=== PATIENT | male | born 1985 | race Caucasian/White ===

== ENCOUNTER 2018-09-06 09:54 | Day surgery (SDC) | payer OTHER ==
--- NOTE | 2018-09-06 09:43 | ANESTHESIA ---
Pre-Anesthesia VS, & Labs - Diagnosis L shoulder AC Joint arthritis, labral tear, bursitis - Procedure L shoulder scope, labral repair, SAD, DCE, RCR Vital Signs: Last Vital Signs Temp 36.4 C L 09/06/18 10:06 Pulse 82 09/06/18 10:06 Resp 16 09/06/18 10:06 BP 118/88 H 09/06/18 10:06 Pulse Ox 97 09/06/18 10:06 Height 5 ft 10 in Weight (kg) 113.4 kg - NPO >8 hours Home Medications and Allergies Home Medications: Ambulatory Orders No Known Home Medications 09/05/18 No Known Home Medications 09/05/18 Allergies/Adverse Reactions: Allergies Allergy/AdvReac Type Severity Reaction Status Date / Time amoxicillin Allergy Rash Verified 09/05/18 14:06 Anes History & Medical History - Medical History Cardiovascular: reports: None Pulmonary: reports: None Gastrointestinal: reports: None Urinary: reports: None Musculoskeletal: reports: None Endocrine/Autoimmune: reports: None Skin: reports: None Exam General: Alert, Oriented x3, Cooperative Dental: WNL Mouth Openin Fingerbreadth Neck Mobility: Normal Mallampati classification: II Thyromental Distance: greater than 6 cm Respiratory: Lungs clear Cardiovascular: Regular rate Neurological: Normal speech Mental/Cognitive Status: Alert/Oriented X3, Normal for patient Cognitive Status: Within normal limits Plan Anesthesia Type: General, Supraclavicular Block Regional Block: Per Surgeon's request for Post Op pain control Consent for Procedure(s) Verified and Reviewed: Yes Code Status: Attempt Resuscitation ASA classification: 2-Mild systemic disease Is this case an emergency?: No
[~2018-09-06 09:54] MED LIST: ROPIVACAINE 0.5% PF 20 ML AMPULE ONE
[2018-09-06] MEDS ORDERED: LACTATED RINGERS 1,000 ML IV ONE (10:05)
[2018-09-06] MEDS ORDERED: cefTRIAXone 2 GM VIAL ONE (10:11)
[2018-09-06] MEDS ORDERED: BUPIVACAINE 0.25% PF 10 ML VIAL ONE ×2 (12:15→12:18)
[2018-09-06] MEDS ORDERED: EPINEPHrine 1 MG/ML AMP ONE (12:15)
[2018-09-06] MEDS ORDERED: EPINEPHrine 1 MG/ML AMP IVP ONE (13:07)
[2018-09-06] MEDS ORDERED: BUPIVACAINE 0.25% PF 10 ML VIAL SUBQ ONE (13:08)
[2018-09-06] MEDS ORDERED: ONDANSETRON 4 MG/2 ML VIAL IVP PRN (17:32)
[2018-09-06] MEDS ORDERED: oxyCODONE 5 MG TABLET PO PRN (17:32)
--- NOTE | 2018-09-06 17:36 | OPERATIVE REPORT ---
Operative Report - General Procedure Date: 09/06/18 Planned Procedure: Left shoulder arthroscopy, labral repair, SAD, DCE, OSPBT Pre-Op Diagnosis: Left shoulder posterior labral tear, SLAP tear, AC joint arthritis, rotator Procedure Performed: Left shoulder arthroscopy, posterior labral repair, subacromial decompression, open subpectoral biceps tenodesis, open distal clavicle excision. Post Op Diagnosis: Left shoulder posterior labral tear, SLAP tear, AC joint arthritis, bursiti - Procedure Note Primary Surgeon: DARLING KULKARNI Secondary Surgeon: TIERA STAHL Anesthesia Technique: General ET tube, Regional block Estimated Blood Loss (mL): 75 - Other Other Information/Narrative: DETAILED PROCEDURE: Labral repair from 6 o'clock to 9:30, subacromial decompression, open subpectoral biceps tenodesis, distal clavicle excision IMPLANTS: Arthrex knotless suture tack x3 Arthrex fiber tack x1 POSTOPERATIVE PLAN: 0-2 weeks-Sling at all times. Pendulum exercises 5 times per day. 2-6 weeks-Passive range of motion with the following limits: FF to 90, abduction to 90 6-12 weeks-Active range of motion in all planes without limitation. Isometric rotator cuff strengthening is allowed 12-16 weeks-Gradually increase strengthening 16 weeks and beyond-Introduce dynamic activities EXAMINATION UNDER ANESTHESIA: ROM: Forward flexion 170 degrees abduction 170 degrees abduction external rotation 80 degrees abduction internal rotation 80 degrees Anterior load and shift: 1+ Posterior load and shift: 1+ ARTHROSCOPIC FINDINGS: Rotator interval: Degenerative fraying Biceps tendon & SLAP: Fraying at the tobias, minimal injection of the tendon, type II SLAP tear Subscapularis: Fraying of the superior border, otherwise intact Rotator Cuff: Normal-appearing HAGL: No Labrum: Posterior inferior labral tear, superior labral tear anterior to posterior Glenoid Cartilage: Grade I chondromalacia with some focal areas of increased wear, peripheral G LAD lesion near labral tear Humeral Head Cartilage: Normal-appearing with mild wear INDICATION FOR SURGERY: This is a 33-year-old [id number] male who sustained an injury to his left shoulder back in 2010, he underwent physical therapy back then which made the pain tolerable and then this past January he injured himself while weightlifting with a sharp increase in pain which failed to improve. Nonoperative managment failed to resolve symptoms. The risks, benefits, and alternatives were discussed. Risks included pain, bleeding, infection, damage to nearby structures, lack of symptom relief, implant complications, stiffness, need for further surgeries, DVT, PE, stroke, and even . He signed a written consent form. PROCEDURE IN DETAIL: The patient was met in the preoperative holding on the day of the procedure. Operative extremity was signed. Consent was verified. He desired to proceed. Regional anesthesia was obtained in the preoperative area. They were brought to the operating room and surrendered to anesthesia. Once general anesthesia was obtained they were placed in the lateral decubitus position with the operative side up. An axillary roll was placed and all bony prominences were well-padded. They were then prepped and draped in the standard sterile fashion. A surgical timeout was held to confirm the patient procedure, identity, procedure, laterality, allergies, images, and antibiotics. All were in agreement we proceeded. Balanced suspension was applied and a standard diagnostic arthroscopy was performed utilizing posterior and anterior superior portal sites. The anterior superior portal site was created under direct visualization. The findings of the diagnostic arthroscopy can be found above. A mid glenoid portal was then created under direct visualization bordering the subscapularis tendon. I then used a combination of high and low angled elevators to develop the labral tear and release it from off the glenoid neck. I then used to the pineapple rasp to finalize my release and abraded the bone to a bleeding bed. A sucker shaver was placed in the interval to debride any loose tissue and further abrade the glenoid neck. Any loose cartilage was debrided at that time. I then established a percutaneous 7:00 portal utilizing the Arthrex system. I then sequentially placed an anchor at the 6:00 position. The suture was passed using an appropriate 25 degree suture lasso. The labrum was secured using knotless technique. Appropriate tension was confirmed with a probe and the excess suture was cut. Using the same technique additional anchors were placed at 7:30, 9:00 positions. Proper capsular tension was restored and a labral bumper was recreated. ARTHROSCOPIC SUBACROMIAL DECOMPRESSION: The instruments and cannula were then removed from the glenohumeral joint. The scope trocar was placed in the posterior portal and the acromion was felt. It was then inserted just under the acromion scraping along the bone until the CA ligament was felt. The scope trocar was then brought just lateral to the CA ligament and out the anterior i ncision. The cannula was then brought over the scope trocar arthroscope were inserted. The arthroscope was backed up until the shaver and arthroscope in the subacromial space. I then systemically debrided the bursa using a sucker shaver and radiofrequency ablation wand. Care was taken to keep the deltoid fascia intact. The rotator cuff was then evaluated, there was no full thickness tear. Final images were taken MINI OPEN BICEPS TENODESIS: A 5 cm incision was made near the axillary fold centered over the pectoralis major tendon. Electrocautery was used to obtain hemostasis. The fascia was opened with dissection scissors. Blunt digital dissection was used to identify the intertubercular groove just under the pectoralis major tendon. The long head of the biceps tendon was visualized within this interval. The short head of the biceps was retracted with my finger and the right angle was used to deliver the tendon of the long head of the biceps out of the wound. A sanders elevator was then used to debride all synovial tissue from the intertubercular groove. A fibertack was placed high within the groove. Both limbs of the fibertack were pulled on and it was well fixed. I then whipstitched the biceps tendon starting 2 cm proximal to the musculotendinous junction down to the musculotendinous junction and back up to the same 2 cm location with a single limb of the suture tack. The other suture was placed once through the tendon at the 2 cm location. I then cut all excess tendon off. The suture limb that was passed the single time was then pulled on and this reduced the tendon nicely into the groove. The elbow was fully straightened and there was no excess tension on the repair site. I then tied 7 reverse half hitches alternating to secure the tendon in its place. The wound was then irrigated copiously. OPEN DISTAL CLAVICLE EXCISION: A 5 cm incision was made in line with the clavicle, centered over the acromioclavicular joint. Electrocautery was used to obtain hemostasis. Full-thickness skin flaps were made at the level of the fascia/joint capsule. A full-thickness longitudinal incision was made to open the acromioclavicular joint. Electrocautery was used to dissect the joint capsule from the bony surfaces. 2 Homans were placed around the distal clavicle. Rongeur was used to debride the intra-articular disc. An 8 mm resection was measured and performed with a sagittal saw. Care was taken to ensure this cut was parallel to the joint surface. All sharp bony edges were rounded. A finger was placed with into the defect and the arm was adducted fully without any impingement in the joint. The joint was then irrigated copiously. A watertight capsular and fascial closure was performed with 0 Vicryl. Any open incisions were closed with 2-0 Vicryl in the dermis and a running 3-0 Monocryl in the skin. The portal sites were then closed with 3-0 Monocryl buried. Mastisol and Steri-Strips were applied. The distal clavicle and biceps tenodesis incisions were injected with a total of 30 mL's of quarter percent Marcaine plain. A sterile dressing and a sling was applied. He was awakened and transferred to the recovery room. marion
[2018-09-06] MEDS ORDERED: HYDROmorphone 0.5 MG/0.5 ML SYRINGE ONE (18:16)
[2018-09-06 20:52] VITALS: BP 127/79
== END 2018-09-06 20:25 | disposition home or self-care (01) ==
LOC: SDS 09:54 → OBS 18:38 → SDS 20:25
PROVIDERS: ATTEND Orthopaedic Surgery
PROC: 0RNK4ZZ Release Left Shoulder Joint, Percutaneous Endoscopic Approach (ICD-10-PCS; 2018-09-06)
PROC: 0PBB4ZZ Excision of Left Clavicle, Percutaneous Endoscopic Approach (ICD-10-PCS; 2018-09-06)
PROC: 0RQK4ZZ Repair Left Shoulder Joint, Percutaneous Endoscopic Approach (ICD-10-PCS; 2018-09-06)
PROC: 0LS24ZZ Reposition Left Shoulder Tendon, Percutaneous Endoscopic Approach (ICD-10-PCS; principal; 2018-09-06 11:00)
DX: S43.492A Other sprain of left shoulder joint, initial encounter (principal); S43.432A Superior glenoid labrum lesion of left shoulder, initial encounter; M19.012 Primary osteoarthritis, left shoulder; M75.52 Bursitis of left shoulder
CPT/HCPCS: 29822; 29824; 29828; 29999; C1713; J1170; J7120

== ENCOUNTER 2018-12-18 10:04 | Outpatient (CLI) | payer OTHER | END 2018-12-18 10:05 | disposition home or self-care (01) | LOC: SC 10:04 | PROVIDERS: ATTEND Internal Medicine Pulmonary Disease | DX: R06.83 Snoring (principal); R06.81 Apnea, not elsewhere classified; G47.8 Other sleep disorders; R51 Headache; R41.89 Other symptoms and signs involving cognitive functions and awareness; G47.10 Hypersomnia, unspecified; Z87.891 Personal history of nicotine dependence | CPT/HCPCS: 99203; 99212 ==

== ENCOUNTER 2019-01-18 20:45 | Outpatient (CLI) | payer OTHER | END 2019-01-18 20:46 | disposition home or self-care (01) | LOC: SC 20:45 | PROVIDERS: ATTEND Internal Medicine Pulmonary Disease | DX: G47.33 Obstructive sleep apnea (adult) (pediatric) (principal); G47.61 Periodic limb movement disorder | CPT/HCPCS: 95810 ==

== ENCOUNTER 2019-02-07 11:15 | Outpatient (CLI) | payer OTHER | END 2019-02-07 11:16 | disposition home or self-care (01) | LOC: SC 11:15 | PROVIDERS: ATTEND Nurse Practitioner Family | DX: G47.33 Obstructive sleep apnea (adult) (pediatric) (principal); G47.61 Periodic limb movement disorder | CPT/HCPCS: 99212; 99214 ==

== ENCOUNTER 2019-04-23 14:47 | Outpatient (CLI) | payer OTHER ==
[2019-04-23 15:37] VITALS: BP 118/68
--- NOTE | 2019-04-23 15:37 | SLEEP CARE CONSULTATION ---
Information from patient questionnaire entered by Cherelle Lagunas. I have reviewed and concur with the information entered by Cherelle Lagunas. This document represents the service I personally performed and the decisions made by me, Yvonne Beauchamp, RN, MSN, DATA ASSISTANT. History of Present Illness Previous diagnosis: Mild, Obstructive Sleep Apnea-Hypopnea Syndrome AHI: 5.6 Reason for CPAP/BiPAP follow up: first compliance Equipment type: CPAP Equipment obtained from: [employer] Mask style: Nasal (Dream) Mask brand: Respironics Backup mask available: No (when this mask gets replaced, keep as a spare) Last cushion change: not since set up Prior sleep studies: Yes Year and Where: 2018 [facility] CPAP Compliance Data - Data Reviewed with Patient Average duration of nightly device use: 4h 49m Compliance rate %: 66.7 Current pressure setting (cmH2O): 6-15 Humidity settin Heated hose settin Average residual AHI: 6.6 Central apnea: 0.4 Obstructive apnea: 1.1 Hypopnea: 5.1 Subjective Missed days of use due to: reports: travel, other (forgot to take to overnight work. ) Patient concerns: reports: mask leak noise (initially only until mask adjusted), other. denies: aerophagia, mask discomfort, air blowing in eyes, condensation in mask/hose, nasal congestion, dry mouth, nose, throat, epistaxis Observed to snore while using device: No Current pressure setting perceived as: too low (waking with air hunger and pulling mask off his face intermittently) On therapy, patient: reports: sleeping better, awakening more refreshed, being more awake and alert during the day, more rested overall. denies: drowsiness while driving Initial [place] Sleepiness Scale score: 19 Current [place] Sleepiness Scale score: 14 Allergies and Home Medications Known drug allergies: Yes Allergy and home medication list: Medication Name (generic/name brand) Strength & Dosage Naproxen 500mg tab one twice daily as needed Allergy List Amoxicillin Review of Systems Review of systems same as previous: No (Recently diagnosed with ADHD) Physical Exam Blood Pressure: 118/68 Cuff size: long Heart Rate: 77 O2 Saturation: 98 Height: 5 ft 11.5 in Weight: 268 lb 9.6 oz Body Mass Index: 36.9 BMI Classification: Obesity Class 2 Impression and Plan 1. Obstructive Sleep Apnea-Hypopnea Syndrome, mild, with good treatment compliance the first month and slightly elevated residual AHI. He is also experiencing air hunger and woke to pulling mask of face. Thus I will increase his CPAP pressure to [id number]. He current ramp is comfortable. He is to contact me if the pressure is uncomfortable or does not resolve air hunger. On CPAP therapy, the patient has better sleep quality and is more rested overall. He is waking much more refreshed but fatigue if inadequate sleep. He is also advised to change his mask regularly to maintain fit and comfort of mask. Patient's apnea severity and rationale for treatment to reduce apnea, improve sleep quality and reduce cardiovascular and cerebrovascular events was reviewed. I also reviewed the benefit of consistent device use of CPAP for anxiety. * Change CPAP pressure to 8-12 cmH2O * Notify me if snoring with mask or feeling that the pressure is too much or too little * Attempt to lose weight * Return for follow up in 1-2 months, or sooner if concerns arise * * Addendum: 04-26-19 Received call that the ramp was not working. I returned call and clarified. The ramp was inadequate but new pressure more comfortable. At first he was unable to adjust ramp higher and called here. Since then he has adjusted ramp to 7cmH20 and reduced time to 5 minutes and is now comfortable. Patient advised to call if further concerns. I spent 100% of this 33 minute visit face to face with the patient with greater than 50% of this was spent time counseling the patient and coordination of care.
== END 2019-04-23 14:48 | disposition home or self-care (01) ==
LOC: SC 14:47
PROVIDERS: ATTEND Nurse Practitioner Family
DX: G47.33 Obstructive sleep apnea (adult) (pediatric) (principal); E66.9 Obesity, unspecified; Z68.36 Body mass index [BMI] 36.0-36.9, adult
CPT/HCPCS: 99212; 99214

== ENCOUNTER 2019-06-11 14:42 | Outpatient (CLI) | payer OTHER ==
[2019-06-11 15:47] VITALS: BP 118/76
--- NOTE | 2019-06-11 15:48 | SLEEP CARE CONSULTATION ---
Information from patient questionnaire entered by Cherelle Lagunas. I have reviewed and concur with the information entered by Cherelle Lagunas. This document represents the service I personally performed and the decisions made by me, Yvonne Beauchamp, RN, MSN, MANAGER OF PRODUCT. History of Present Illness Previous diagnosis: Mild, Obstructive Sleep Apnea-Hypopnea Syndrome AHI: 5.6 Reason for follow up: other (6 week ) Equipment type: CPAP Equipment obtained from: [employer] Mask style: Nasal (Dreamwear) Mask brand: Respironics Backup mask available: No (keep current mask when replaced for spare ) Last cushion change: 2 weeks Prior sleep studies: Yes HPI additional information: The CPAP pressure was adjusted for elevated residual and more comfortable. The ramp was also increased and much more comfortable and resolved air hunger. CPAP Compliance Data - Data Reviewed with Patient Average duration of nightly device use: 5h 55m Compliance rate %: 83.3 Current pressure setting (cmH2O): 8-12 Humidity settin Heated hose settin Average residual AHI: 3.7 Average large leak: 16s Subjective Missed days of use due to: reports: other (short nights due to initiation of adderall but now sleeping well. ) Patient concerns: reports: mask discomfort (mild from new mustache - thinking of shaving off ), air blowing in eyes (most nights at initiation), nasal congestion, other (mask dislodging in sleep due to headgear slipping up on head ). denies: aerophagia, mask leak noise, condensation in mask/hose, dry mouth, nose, throat, epistaxis Observed to snore while using device: No Current pressure setting perceived as: comfortable On therapy, patient: reports: sleeping better, awakening more refreshed, being more awake and alert during the day, more rested overall. denies: drowsiness while driving (able to drive long distances now since CPAP use. ) Initial [place] Sleepiness Scale score: 19 Current [place] Sleepiness Scale score: 7 Allergies and Home Medications Known drug allergies: Yes (amoxicillin) Home medication list reviewed: Yes Allergy and home medication list: Medication Name (generic/name brand) Strength & Dosage Naproxen 500mg tab one twice daily as needed adderall XR 20mg Allergy List Amoxicillin Review of Systems Review of systems same as previous: No (diagnosed with ADHD) Physical Exam Blood Pressure: 118/76 Cuff size: long Heart Rate: 88 O2 Saturation: 98 Height: 5 ft 11.5 in Weight: 261 lb (no boots) Weight change since last visit: lost 5 pounds Body Mass Index: 35.9 BMI Classification: Obesity Class 2 Impression and Plan 1. Obstructive Sleep Apnea-Hypopnea Syndrome, mild , with good treatment compliance and good apnea control. The new autoCPAP pressure is much more comfortable and reduced residual AHI from 6.6 to 3.7. On CPAP therapy, the patient has better sleep quality and is more rested overall especially since pressure change. To reduce mask dislodging in sleep, I ordered a headgear adap tor. He has been adjusting the humidity to find the right comfort level as was having condensation and now has mild dryness at lower levels. I discussed how humidity increases moisture and heated hose will reduce condensation. So he can adjust both to comfort of warmth and moisture of air and will change with sleeping environment temperature changes. He woke to the pressure too high when it was set at [id number]. Thus I will adjust pressure to [id number] as current 90% pressure used that is comfortable is 9.2cmH20. Patient advised to contact me if uncomfortable. He was also praised for his weight loss. New auto CPAP range could accomodate for some more weight loss. Patient advised of symptoms to report for further pressure adjustment. Patient's apnea severity and rationale for treatment to reduce apnea, improve sleep quality and reduce cardiovascular and cerebrovascular events was reviewed. I also reviewed the benefit of consistent device use of CPAP for his ADHD. * Change CPAP pressure to 8-10 cmH2O * Adjust humidity and heated hose. * headgear adaptor * Notify me if snoring with mask or feeling that the pressure is too much or too little * Attempt to lose weight * Return for follow up in 6 months as out of town til February, or contact sooner if concerns arise I spent 100% of this 35 minute visit face to face with the patient with greater than 50% of this was spent time counseling the patient and coordination of care.
== END 2019-06-11 14:43 | disposition home or self-care (01) ==
LOC: SC 14:42
PROVIDERS: ATTEND Nurse Practitioner Family
DX: G47.33 Obstructive sleep apnea (adult) (pediatric) (principal); E66.9 Obesity, unspecified; Z68.35 Body mass index [BMI] 35.0-35.9, adult
CPT/HCPCS: 99212; 99214

== ENCOUNTER 2020-12-04 05:33 | Day surgery (SDC) | payer OTHER ==
[2020-12-04] MEDS ORDERED: IOPAMIDOL-300 100 ML VIAL ONE (07:14)
[2020-12-04 07:18] LABS: BASOPHILS # (AUTO) 0.1 10^3/uL (0.0-0.1); BASOPHILS % (AUTO) 0.4 %; EOSINOPHILS # (AUTO) 0.2 10^3/uL (0.0-0.7); EOSINOPHILS % (AUTO) 1.4 %; HGB - HEMOGLOBIN 16.3 g/dL (14.0-18.0); LYMPHOCYTES # (AUTO) 2.8 10^3/uL (1.5-3.5); LYMPHOCYTES % (AUTO) 19.2 %; MEAN CORPUSCULAR HEMOGLOBIN 29.6 pg (27.0-31.0); MEAN CORPUSCULAR VOLUME 87.3 fL (80.0-94.0); MEAN PLATELET VOLUME 10.5 fL (7.4-11.4); MONOCYTES # (AUTO) 1.4 10^3/uL (0.0-1.0); MONOCYTES % (AUTO) 9.7 %; NEUTROPHILS # (AUTO) 10.1 10^3/uL (1.5-6.6); NEUTROPHILS % (AUTO) 68.5 %; PLT - PLATELET COUNT 267 10^3/uL (130-450); RED CELL DISTRIBUTION WIDTH 12.4 % (12.0-15.0); WHITE BLOOD COUNT 14.7 x10^3/uL (4.8-10.8)
[2020-12-04 07:31] LABS: ALBUMIN 4.7 g/dL (3.2-5.5); ALBUMIN/GLOBULIN RATIO 1.5 (1.0-2.2); BILIRUBIN,TOTAL 0.8 mg/dL (0.2-1.0); CALCIUM 9.2 mg/dL (8.5-10.3); CREATININE 1.1 mg/dL (0.6-1.2); TOTAL PROTEIN 7.9 g/dL (6.7-8.2)
[2020-12-04] MEDS ORDERED: IOPAMIDOL-300 100 ML VIAL IVP ONE (08:11)
--- NOTE | 2020-12-04 08:40 | CT Report ---
PROCEDURE: PELVIS W INDICATIONS: rectal pain swelling ? abscess CONTRAST: IV CONTRAST: Isovue 300 ml: 100 PO CONTRAST: *NO PO CONTRAST TECHNIQUE: After the administration of nonionic contrast, 5 mm thick sections acquired from the iliac crests to the symphysis. 5 mm thick coronal and sagittal reformats were acquired. For radiation dose reductio n, the following was used: automated exposure control, adjustment of mA and/or kV according to patie nt size. COMPARISON: None FINDINGS: Image quality: Excellent. Peritoneum and bowel: Contrast enhanced bowel loops demonstrate normal wall thickness and caliber. No free fluid or air. Located at the anterior margin of the anal and approximately 1.3 cm in transve rse dimension, also measuring 1.7 cm craniocaudad and 1.6 cm AP.. This is best seen centered on serie s 3 image 49 axial imaging, series 5 image 43 coronal reformatting should imaging, and series 6 image 43 sagittal reconstruction imaging. Genitourinary: Bladder wall thickness is normal. Nodes and vessels: No iliac, pelvic, or inguinal adenopathy. Iliac vessels demonstrate normal size and enhancement. Bones: No suspicious bony lesions. Miscellaneous: No inguinal hernias. There is no sign of diverticulitis and a normal appendix is fou nd at the right lower quadrant. IMPRESSION: Small anterior perianal abscess, as discussed above, with reference images for review detailed above. This abscess measures 1.3 x 1.7 x 1.6 cm and is not associated with fistula or other abnormality mor e superiorly. Please note that MR scanning with contrast generally provides significantly higher gato omic detail in this area. Reviewed by: Donny Montelongo MD on 12/04/2020 8:39 AM PDT Approved by: Donny Montelongo MD on 12/04/2020 8:39 AM PDT Station ID: [id number]
--- NOTE | 2020-12-04 09:05 | ED Physician Documentation ---
History of Present Illness - Stated complaint Stated Complaint: RECTAL PAIN - Chief complaint Chief Complaint: General - History obtained from History obtained from: Patient - History of Present Illness Timing: How many days ago (3) - Additonal information Additional information: Previously well 35-year-old male has developed some pain in his rectum over the past 3 days. He states that he has had a normal bowel movement yesterday and he has had some watery bowel movement out today after taking some milk of magnesia. He has pain with defecation and he does not feel that he has any hemorrhoids he is not had any evidence of blood out but the rectum is very tender and feels swollen. He has not had a fever he has not had these symptoms previously. Review of Systems Constitutional: denies: Fever Nose: denies: Congestion Throat: denies: Sore throat Cardiac: denies: Chest pain / pressure Respiratory: denies: Cough GI: denies: Abdominal Pain, Nausea, Vomiting, Constipation, Diarrhea : denies: Dysuria, Frequency Skin: denies: Rash Musculoskeletal: denies: Neck pain, Back pain, Extremity pain, Joint pain PD PAST MEDICAL HISTORY - Past Medical History Past Medical History: Yes Cardiovascular: None Respiratory: None Endocrine/Autoimmune: None GI: None : None Psych: Anxiety, Panic attacks, ADD/ADHD, Claustrophobia Musculoskeletal: None Derm: None - Past Surgical History Past Surgical History: Yes Ortho: Other - Present Medications Home Medications: Ambulatory Orders Medication Instructions Recorded Confirmed Dextroamphetamine/Amphetamine 30 mg PO DAILY 12/04/20 12/04/20 [Adderall 30 mg Tablet] - Allergies Allergies/Adverse Reactions: Allergies Allergy/AdvReac Type Severity Reaction Status Date / Time amoxicillin Allergy Rash Verified 12/04/20 05:42 ciprofloxacin AdvReac Nausea Verified 12/04/20 10:12 - Social History Does the pt smoke?: No Smoking Status: Never smoker Does the pt drink ETOH?: Yes ETOH Use: Wine, Beer, Liquor Does the pt have substance abuse?: No - Immunizations Immunizations are current?: Yes - POLST Patient has POLST: No PD ED PE NORMAL - Vitals Vital signs reviewed: Yes (Cardiac and hypertensive) - General General: Alert and oriented X 3, No acute distress, Well developed/nourished, Other (Apprehensive appearing 35-year-old male) - HEENT HEENT: Atraumatic, PERRL, EOMI - Neck Neck: Supple, no meningeal sign - Cardiac Cardiac: RRR, No murmur - Respiratory Respiratory: No respiratory distress, Clear bilaterally - Abdomen Abdomen: Normal bowel sounds, Soft, Non tender, Non distended, No organomegaly - Rectal Rectal: Other (The rectum itself is swollen and tender it is tender enough that I am unable to get a finger into the anal canal.) - Back Back: No CVA TTP, No spinal TTP - Derm Derm: Normal color, Warm and dry, No rash - Extremities Extremities: No deformity, No edema - Neuro Neuro: Alert and oriented X 3, 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, No motor deficit, No sensory deficit, Normal speech Eye Opening: Spontaneous Motor: Obeys Commands Verbal: Oriented GCS Score: 15 - Psych Psych: Normal mood, Normal affect Results - Vitals Vitals: Vital Signs - 24 hr 12/04/20 12/04/20 12/04/20 05:38 09:42 11:00 Temperature 36.2 C L Heart Rate 111 H 97 105 H Respiratory 16 19 19 Rate Blood Pressure 150/99 H 131/82 H 145/77 H O2 Saturation 98 98 99 12/04/20 13:00 Temperature Heart Rate 99 Respiratory 18 Rate Blood Pressure 117/100 H O2 Saturation 99 Oxygen O2 Source Room air - Labs Labs: Laboratory Tests 12/04/20 12/04/20 12/04/20 07:13 07:13 11:00 WBC 14.7 H RBC 5.50 Hgb 16.3 Hct 48.0 MCV 87.3 MCH 29.6 MCHC 34.0 RDW 12.4 Plt Count 267 MPV 10.5 Neut # (Auto) 10.1 H Lymph # (Auto) 2.8 [place] # (Auto) 1.4 H Eos # (Auto) 0.2 Baso # (Auto) 0.1 Absolute Nucleated RBC 0.00 Nucleated RBC % 0.0 Sodium 136 Potassium 4.0 Chloride 98 L Carbon Dioxide 29 Anion Gap 9.0 BUN 18 Creatinine 1.1 Estimated GFR (MDRD) 75 L Glucose 118 H Calcium 9.2 Total Bilirubin 0.8 AST 24 ALT 37 Alkaline Phosphatase 98 Total Protein 7.9 Albumin 4.7 Globulin 3.2 Albumin/Globulin Ratio 1.5 Lipase 27 Nasal Adenovirus (PCR) NOT DETECTED Nasal B. parapertussis DNA (PCR) NOT DETECTED Nasal Coronavir 229E PCR NOT DETECTED Nasal Coronavir HKU1 PCR NOT DETECTED Nasal Coronavir NL63 PCR NOT DETECTED Nasal Coronavir OC43 PCR NOT DETECTED Nasal Enterovir/Rhinovir PCR NOT DETECTED Nasal Influenza B PCR NOT DETECTED Nasal Influenza A PCR NOT DETECTED Nasal Parainfluen 1 PCR NOT DETECTED Nasal Parainfluen 2 PCR NOT DETECTED Nasal Parainfluen 3 PCR NOT DETECTED Nasal Parainfluen 4 PCR NOT DETECTED Nasal RSV (PCR) NOT DETECTED Nasal B.pertussis DNA PCR NOT DETECTED Nasal C.pneumoniae (PCR) NOT DETECTED Jason Human Metapneumo PCR NOT DETECTED Nasal M.pneumoniae (PCR) NOT DETECTED Nasal SARS-CoV-2 (PCR) NOT DETECTED - Rads (name of study) CT pel Radiology: Prelim report reviewed (: Small anterior perianal abscess, as discu ssed above, with reference images for review detailed above. The abscess measures 1.3 x 1.7 x 1.6 cm and is not associated with fistula or other abnormality more superiorly.), EMP read indepedently, See rad report PD MEDICAL DECISION MAKING - ED course Complexity details: reviewed results, re-evaluated patient, considered different ial, d/w patient ED course: 35-year-old male with 3 days of rectal pain has swelling in the rectum and a CT scan reveals a small abscess anteriorly. The patient is too tender to even be examined in the emergency department and Dr. Velez is consulted in the case comes to the emergency department evaluates the patient and agrees that he will need to take him to the operating room for treatment. Departure - Departure Disposition: 66 [facility] DC/Xfer Clinical Impression: Elizabeth-rectal abscess Condition: Stable
[2020-12-04] MEDS ORDERED: CIPROFLOXACIN 400 MG/200 ML 400 MG/200 ML BAG IV STA (09:31)
[2020-12-04] MEDS ORDERED: SODIUM CHLORIDE 0.9% 1,000 ML IV STA (09:31)
[2020-12-04] MEDS ORDERED: metroNIDAZOLE 500 MG/100 ML 500 MG/100 ML BAG IV ONE (09:32)
[2020-12-04 11:56] LABS: B. PARAPERTUSSIS- RESP PCR PAN NOT DETECTED; B. PERTUSSIS- RESP PCR PANEL NOT DETECTED; C. PNEUMONIAE- RESP PCR PANEL NOT DETECTED; CORONAVIRUS 229E-RESP PCR NOT DETECTED; CORONAVIRUS HKU1-RESP PCR NOT DETECTED; CORONAVIRUS NL63-RESP PCR NOT DETECTED; CORONAVIRUS OC43-RESP PCR NOT DETECTED; HUMAN METAPNEUMOVIRUS NOT DETECTED; INFLUENZA A- RESP PCR PANEL NOT DETECTED; INFLUENZA B - RESP PCR PANEL NOT DETECTED; M. PNEUMONIAE- RESP PCR PANEL NOT DETECTED; PARAINFLUENZA VIRUS 1 NOT DETECTED; PARAINFLUENZA VIRUS 2 NOT DETECTED; PARAINFLUENZA VIRUS 3 NOT DETECTED; PARAINFLUENZA VIRUS 4 NOT DETECTED; RHINOVIRUS/ENTEROVIRUS NOT DETECTED; RSV- RESP PCR PANEL NOT DETECTED; SARS-CoV-2 -RESP PCR PANEL NOT DETECTED
[2020-12-04] MEDS ORDERED: LIDOCAINE MPF 2%-EPI 1:200000 20 ML VIAL ONE (13:43)
[2020-12-04] MEDS ORDERED: BUPIVACAINE 0.5% PF 30 ML VIAL ONE (13:43)
[2020-12-04] MEDS ORDERED: KETAMINE 500 MG/10 ML VIAL ONE (15:25)
[2020-12-04] MEDS ORDERED: MIDAZOLAM 2 MG/2 ML VIAL ONE (15:25)
[2020-12-04] MEDS ORDERED: LIDOCAINE-MPF 2% 5 ML VIAL ONE (15:26)
[2020-12-04] MEDS ORDERED: PROPOFOL 200 MG/20 ML VIAL IVP ONE ×2 (15:26→16:13)
[2020-12-04] MEDS ORDERED: ONDANSETRON 4 MG/2 ML VIAL ONE (15:26)
--- NOTE | 2020-12-04 15:34 | ANESTHESIA ---
Pre-Anesthesia VS, & Labs - Diagnosis rectal abcess - Procedure EUA with I&D of rectal abcess Vital Signs: Temp Pulse Resp BP Pulse Ox 36.6 C 90 16 118/68 100 12/04/20 15:00 12/04/20 15:00 12/04/20 15:00 12/04/20 15:00 12/04/20 15:00 Height: 5 ft 10 in Weight (kg): 123.831 kg Body Mass Index: 39.2 BMI Classification: Obese - NPO >8 hours - Lab Results Current Lab Results: Laboratory Tests 12/04/20 07:13: Sodium 136, Potassium 4.0, Chloride 98 L, Carbon Dioxide 29, Anion Gap 9.0, BUN 18, Creatinine 1.1, Estimated GFR (MDRD) 75 L, Glucose 118 H, Calcium 9.2, Total Bilirubin 0.8, AST 24, ALT 37, Alkaline Phosphatase 98, Total Protein 7.9, Albumin 4.7, Globulin 3.2, Albumin/Globulin Ratio 1.5, Lipase 27 12/04/20 07:13: WBC 14.7 H, RBC 5.50, Hgb 16.3, Hct 48.0, MCV 87.3, MCH 29.6, MCHC 34.0, RDW 12.4, Plt Count 267, MPV 10.5, Neut # (Auto) 10.1 H, Lymph # (Auto) 2.8, [place] # (Auto) 1.4 H, Eos # (Auto) 0.2, Baso # (Auto) 0.1, Absolute Nucleated RBC 0.00, Nucleated RBC % 0.0 Fish Bones: 12/04/20 07:13 12/04/20 07:13 Home Medications and Allergies Home Medications: Ambulatory Orders Dextroamphetamine/Amphetamine [Adderall 30 mg Tablet] 30 mg PO DAILY 12/04/20 Active Medications Sodium Chloride (Normal Saline 0.9%) 1,000 mls @ 150 mls/hr IV .Q6H40M STA Stop: 12/04/20 16:10 Last Admin: 12/04/20 09:59 Dose: 150 mls/hr Documented by: Dextroamphetamine/Amphetamine [Adderall 30 mg Tablet] 30 mg PO DAILY 12/04/20 Allergies/Adverse Reactions: Allergies Allergy/AdvReac Type Severity Reaction Status Date / Time amoxicillin Allergy Rash Verified 12/04/20 05:42 ciprofloxacin AdvReac Nausea Verified 12/04/20 10:12 Anes History & Medical History - Anesthetic History Anesthesia Complications: reports: No previous complications Family history of Anesthesia Complications: Denies Family history of Malignant Hyperthermia: Denies - Medical History Cardiovascular: reports: None Pulmonary: reports: Sleep apnea, CPAP use Gastrointestinal: reports: None Urinary: reports: None Musculoskeletal: reports: None Endocrine/Autoimmune: reports: None Skin: reports: None Smoking Status: Never smoker Psychosocial: reports: Anxiety History of Cancer?: No - Surgical History Orthopedic: reports: Arthroscopic surgery (L shoulder), Other Exam General: Alert, Oriented x3, Cooperative Dental: WNL Mouth Openin Fingerbreadth Neck Mobility: Normal Mallampati classification: III Thyromental Distance: less than 4 cm Respiratory: Lungs clear Cardiovascular: Regular rate Abdomen: Normal bowel sounds Mental/Cognitive Status: Alert/Oriented X3, Normal for patient Plan Anesthesia Type: General Consent for Procedure(s) Verified and Reviewed: Yes Code Status: Attempt Resuscitation ASA classification: 3-Severe systemic disease Is this case an emergency?: No
--- NOTE | 2020-12-04 16:10 | SURGERY HX AND PHYSICAL(T) ---
Surgical History & Physical - Chief Complaint/HPI Chief Complaint: Perianal pain and levator spasm History of Present Illness: 35-year-old male presenting for acute onset perianal pain. Patient reports 1 to 2-day history of anterior perianal/perineal pain. Patient had suspected he was constipated and took laxative without any relief. No history of bloody diarrhea either now or historically. No prior colonoscopy. Denies colorectal cancer, inflammatory bowel disease as part of family history. Notable past surgical history to include none. Patient denies change in bowel function, denies bleeding per rectum, and also denies reflux associated symptoms. Patient does not use tobacco. Patient has a history of alcohol use but denies any associated abuse. Heterosexual male, , accompanied by . Patient is active ; no impediment to exercise tolerance. No history of heart attack or stroke. Patient takes no systemic anticoagulation. Endoscopic history includes none prior. - PMH/PSH/Social Hx Does the pt have a hx of MRSA?: No Cardiovascular: None Respiratory: Sleep apnea, CPAP use Skin: None Endocrine/Autoimmune: None Gastrointestinal: None Urinary: None Musculoskeletal: None Psychiatric: Anxiety, Panic attacks, ADD/ADHD, Claustrophobia Orthopedic: Arthroscopic surgery (L shoulder), Other Smoking Status: Never smoker Does the pt drink ETOH?: Yes Frequency: Occasional Does the pt have substance abuse?: No - Home Meds and Allergies Home Medications: Dextroamphetamine/Amphetamine [Adderall 30 mg Tablet] 30 mg PO DAILY 12/04/20 Allergies/Adverse Reactions: Allergies Allergy/AdvReac Type Severity Reaction Status Date / Time amoxicillin Allergy Rash Verified 12/04/20 05:42 ciprofloxacin AdvReac Nausea Verified 12/04/20 10:12 - Review of Systems Constitutional: Malaise Gastrointestinal: Other (Severe perianal pain) - Vital Signs Heart Rate: 90 Blood Pressure: 118/68 Temperature: 36.6 C Respiratory Rate: 16 O2 Saturation: 100 Weight (kg): 123.831 kg Height: 1.78 m - Physical Exam Comments/Other: General Appearance: positive: No acute distress Eyes Bilateral: positive: Normal inspection ENT: positive: ENT inspection nml Neck: positive: Nml inspection Respiratory: positive: Chest non-tender, No respiratory distress, Breath sounds nml. negative: Wheezes, Rales, Rhonchi Cardiovascular: positive: Regular rate & rhythm Abdomen: positive: No distention, Other. negative: Guarding, Rebound Extremities: positive: Non-tender, Full ROM, Nml appearance Neurologic/Psychiatric: positive: Oriented x3, CN's nml (2-12) Inspection: External Hemorrhoids - [None] Fissure in ano - [None] Erythema (perianal) - [anterior] Other - anterior perianal/perineal induration Palpation: Fluctuance -anterior Palpable cord - [None] Scar tissue - [None] Induration -anterior Digital Rectal Exam: Unable to perform secondary to significant discomfort Anoscopy: Unable to perform secondary to significant discomfort - Patient Review Patient Review: Problems were reviewed with the patient during this visit. Medications were reviewed with the patient during this visit. Allergies were reviewed this patient during this visit. Pertinent Tests Reviewed: All pertitent test for this patient were reviewed. - Assessment & Plan Assessment and Plan: 35-year-old male patient with no significant past medical or surgical history who presents with first episode of perianal abscess. No reported symptoms concerning for inflammatory bowel disease. CAT scan revealed small earlier as of fluctuance however this is deep with associated risk of sphincteric injury approached at the bedside without a ppropriate sedation. Patient was counseled of the risks related to anorectal intervention including sphincteric injury, bleeding, infectious process, amongst others. He was counseled there is no safe alternative given the risk of propagation and development of necrotizing infections in this clinical setting. Optimally he is to undergo exam under anesthesia, incision and drainage, possible seton placement should there be concern for fistula, possible rigid proctosigmoidoscopy, amongst others. He will spend extended recovery as part of ambulatory surgery with plan discharge tomorrow. Risk of urinary retention and pain control are significant and the patient would be best served with extended postoperative care. Please note that voice recognition software was used to transcribe this note and inadvertent errors might persist in spite of review and editing. I am obliged to you for your attention. I am thankful to you for allowing me to participate with you in this care of this patient.
[2020-12-04] MEDS ORDERED: SODIUM CHLORIDE 0.9% 10 ML VIAL IVP ONE (16:11)
[2020-12-04] MEDS ORDERED: fentaNYL 100 MCG/2 ML VIAL ONE ×2 (16:13→16:45)
[2020-12-04] MEDS ORDERED: BUPIVACAINE 0.5% PF 30 ML VIAL INFIL ONE ×2 (16:38→17:00)
[2020-12-04] MEDS ORDERED: LIDOCAINE 2%-EPI 1:100000 20 ML MDV SUBQ ONE ×2 (16:39→17:01)
[2020-12-04] MEDS ORDERED: oxyCODONE 5 MG TABLET PO PRN (17:17)
[2020-12-04] MEDS ORDERED: HYDROmorphone 0.5 MG/0.5 ML SYRINGE IVP PRN (17:17)
[2020-12-04] MEDS ORDERED: ONDANSETRON 4 MG/2 ML VIAL IVP PRN (17:17)
[2020-12-04] MEDS ORDERED: LACTATED RINGERS 1,000 ML IV ONE (17:20)
--- NOTE | 2020-12-04 17:23 | OPERATIVE REPORT ---
Operative Report - General Procedure Date: 12/04/20 Planned Procedure: 1. Examined anesthesia 2. Planned incision and drainage 3. Pudendal block 4. Other indicated procedures Pre-Op Diagnosis: Perianal abscess; perianal sepsis Procedure Performed: 1. Examined anesthesia 2. Planned incision and drainage 3. Pudendal block 4. Other indicated procedures Post Op Diagnosis: Same; [id number]; transphincteric [id number] - Procedure Note Primary Surgeon: Rosie Secondary Surgeon: Fahad Anesthesia Provider: Janiya Anesthesia Technique: General LMA, Local Pathology: None Estimated Blood Loss (mL): 20 Drain/Tube Type: Other ( 1. Silastic vessel loop seton placed through the transphincteric fistula doubled up x2. 2. Iodoform packing strip intermingled with Surgicel within the perianal abscess cavity. 3. Anal packing in the form of Gelfoam wrapped with Surgicel x2 constructed as a tampon) Indications: See EMR Findings: Left anterior lateral fluctuance with fistula in anal note transphincteric performed for decompression and seton placement. Complications: None - Other Other Information/Narrative: Anorectal exam: Inspection: External Hemorrhoids - [None] Fissure in ano - [None] Erythema (perianal) - [None] Other - left anterior lateral induration Palpation: Fluctuance - left anterior lateral induration and fluctuant Palpable cord - left anterior lateral palpable cord Scar tissue - [None] Induration - left anterior lateral Digital Rectal Exam: Rectal Tone - [good] Fluctuance - [None] Sphincter - [intact however sphincteric involvement was suspected in the setting of fistula] Masses - [None] Anoscopy: Hemorrhoids - Grade [II] Bleeding - [None] The patient was taken to the operating room, placed supine on operating table. Bilateral lower extremity serial compression devices were placed. After informed consent was confirmed and obtained, patient was induced for anesthesia as per above. The patient was placed in high lithotomy with candy-cane stirrups. At this time a time-out was called and the patient was performed for an intraoperative rigid/flexible endoscopy (see above for details). Digital rectal findings are listed above as well. Patient was thereafter prepped and draped in usual sterile fashion. A time-out was again called and agreed to by all in the room. Local was instilled for a perioperative block. Perioperative antibiotics were administered as listed above within an hour of incision if the patient had not already been dosed preoperatively as scheduled. Patient was placed for Sunshine catheter. Attending Physician Attestation Physical Presence Documentation I was physically present during the service to the patient and/or personally examined the patient, and I was directly involved in the management of the care provided to the patient. Procedure note: Preoperative diagnosis: Anal abscess Postoperative diagnosis: Anal abscess Procedure: Flexible proctosigmoidoscopy Surgeon: Mike Velez M.D. Indication: Evaluate for inflammatory changes consistent with inflammatory bowel disease. Consent was obtained from the patient. Verification of patient identification and procedure was performed. Timeout was called and agreed to by all in the room. Procedure detail: Inspection and digital rectal exam were performed, followed by insertion of the lubricated proctosigmoidoscope. The scope was advanced under direct vision with air insufflation. The lumen and mucosa was then examined carefully. The quality of bowel prep was good. The proctosigmoidoscope was then withdrawn. Findings: No significant inflammatory changes masses or other concerning features. Conclusions: The patient tolerated procedure well and was informed regarding the above listed findings. Circumferential exam and evaluation of the perianal skin revealed findings as per above consistent with perianal sepsis with associated fluctuance concerning for an abscess. A planned incision and drainage procedure thereafter was performed incision as medially as possible without injuring the sphincteric complex, which was carefully palpated and protected throughout. The unique characteristics of the cavity are listed above under findings. With the abscess decompressed, we thereafter proceeded to evaluate for the presence of an associated fistulous communication for which there was a clinical suspicion. Thus, the fistula probe was inserted into the cavity without any complication and passed through to the external opening. Please see above for specifics under findings. If the fistula probe was not easily passed, diluted hydrogen peroxide was utilized to identify the internal opening and if extravasation clearly appreciated, it was used to guide the fistula probe towards intubating the track. Classification is listed above. The probe was thereafter used to thread a silastic-vessel loop to act as a seton; this was doubled on itself and sized to fit. Once evaluated for any other tracts, if any, or extension if present (see above for both) the vessel loops were appropriately sized using silk ligatures. The external openings were assured for appropriately opening and sent for pathology as well if indicated. Circumferential exam was again performed without any evidence of bleeding or other pathology. 2 sheets of Surgicel were placed in the anal canal for hemostasis wrapped about Gelfoam. The patient tolerated the procedure well for which there was no complication. All counts correct for sponges, needles, and instruments. The patient was taken to the post anesthesia care unit in stable condition.
[2020-12-04] MEDS ORDERED: HYDROmorphone 0.5 MG/0.5 ML SYRINGE ONE (17:32)
[2020-12-04] MEDS ORDERED: KETOROLAC 15 MG/ML VIAL ONE (17:36)
--- NOTE | 2020-12-04 17:58 | ANESTHESIA POST OP EVALUATION ---
Anesthesia Post Eval - Post Anesthesia Eval Vitals: Last Vital Signs Temp 37.3 C 12/04/20 17:55 Pulse 90 12/04/20 17:55 Resp 16 12/04/20 17:55 BP 121/65 12/04/20 17:55 Pulse Ox 100 12/04/20 17:55 CV Function Including HR & BP: Stable Pain Control: Satisfactory Nausea & Vomiting: Negative Mental Status: Baseline Respiratory Status: Airway Patent Hydration Status: Satisfactory Anesthesia Complications: None
[2020-12-04] MEDS ORDERED: KETOROLAC 15 MG/ML VIAL IVP SCH (19:00)
[2020-12-04] MEDS: methocarbamoL 500 MG TABLET PO SCH (19:19)
[2020-12-04] MEDS: ACETAMINOPHEN 1,000 MG/100 ML 100 ML IV SCH (20:03)
[2020-12-04] MEDS: PREGABALIN 100 MG CAPSULE PO SCH (21:42)
[2020-12-04] MEDS ORDERED: ACETAMINOPHEN 1,000 MG/100 ML 100 ML IV SCH (22:00)
[2020-12-05] MEDS: KETOROLAC 15 MG/ML VIAL IVP SCH ×2 (00:15→06:11)
[2020-12-05] MEDS: methocarbamoL 500 MG TABLET PO SCH ×2 (00:16→06:11)
[2020-12-05] MEDS: ACETAMINOPHEN 1,000 MG/100 ML 100 ML IV SCH ×2 (02:38→08:33)
[2020-12-05 05:15] LABS: BASOPHILS % (AUTO) 0.3 %; EOSINOPHILS # (AUTO) 0.2 10^3/uL (0.0-0.7); HCT - HEMATOCRIT 42.6 % (42.0-52.0); HGB - HEMOGLOBIN 14.4 g/dL (14.0-18.0); MEAN CORPUSCULAR HEMOGLOBIN 29.9 pg (27.0-31.0); MEAN CORPUSCULAR HGB CONC 33.8 g/dL (32.0-36.0); MEAN CORPUSCULAR VOLUME 88.4 fL (80.0-94.0); MEAN PLATELET VOLUME 10.4 fL (7.4-11.4); MONOCYTES # (AUTO) 1.4 10^3/uL (0.0-1.0); MONOCYTES % (AUTO) 11.1 %; NEUTROPHILS # (AUTO) 7.4 10^3/uL (1.5-6.6); NEUTROPHILS % (AUTO) 61.1 %; PLT - PLATELET COUNT 242 10^3/uL (130-450); RED BLOOD COUNT 4.82 10^6/uL (4.70-6.10); RED CELL DISTRIBUTION WIDTH 12.6 % (12.0-15.0); WHITE BLOOD COUNT 12.2 x10^3/uL (4.8-10.8)
[2020-12-05 05:28] LABS: ALBUMIN 3.9 g/dL (3.2-5.5); ALBUMIN/GLOBULIN RATIO 1.4 (1.0-2.2); BILIRUBIN,TOTAL 1.2 mg/dL (0.2-1.0); CALCIUM 8.6 mg/dL (8.5-10.3); CREATININE 1.1 mg/dL (0.6-1.2); TOTAL PROTEIN 6.7 g/dL (6.7-8.2)
[2020-12-05 08:04] VITALS: BP 112/52
[2020-12-05] MEDS: PREGABALIN 100 MG CAPSULE PO SCH (08:33)
== END 2020-12-05 10:10 | disposition home or self-care (01) ==
LOC: ED 05:33 → SDS 12:59 → MS2 17:48 → SDS 12-05 10:10
PROVIDERS: ATTEND Surgery
PROC: 0DJD8ZZ Inspection of Lower Intestinal Tract, Via Natural or Artificial Opening Endoscopic (ICD-10-PCS; 2020-12-04)
PROC: 0D9Q70Z Drainage of Anus with Drainage Device, Via Natural or Artificial Opening (ICD-10-PCS; principal; 2020-12-04 15:30)
DX: K61.4 Intrasphincteric abscess (principal); K64.2 Third degree hemorrhoids; G47.30 Sleep apnea, unspecified; E66.9 Obesity, unspecified; Z68.39 Body mass index [BMI] 39.0-39.9, adult; Z20.822 Contact with and (suspected) exposure to COVID-19
CPT/HCPCS: 0202U; 36415; 45330; 46280; 72193; 80053; 83690; 85025; 96365; 99284; 99285; A9270; J0131; J1170; J7120; Q9967

== ENCOUNTER 2021-01-12 07:53 | Day surgery (SDC) | payer OTHER ==
[2021-01-12] MEDS ORDERED: LACTATED RINGERS 1,000 ML IV ONE ×2 (08:17→10:16)
--- NOTE | 2021-01-12 08:31 | ANESTHESIA ---
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 - Procedure COLONOSCOPY Vital Signs: Temp Pulse Resp BP Pulse Ox 36.3 C L 105 H 18 142/100 H 94 01/12/21 08:11 01/12/21 08:11 01/12/21 08:11 01/12/21 08:11 01/12/21 08:11 Height: 5 ft 11 in Weight (kg): 123 kg Body Mass Index: 37.8 BMI Classification: Obese - NPO >8 hours Home Medications and Allergies Dextroamphetamine/Amphetamine [Adderall 30 mg Tablet] 30 mg PO DAILY 12/04/20 Dextroamphetamine/Amphetamine [Adderall 10 mg Tablet] 10 mg PO QPM PRN 01/08/21 Allergies/Adverse Reactions: Allergies Allergy/AdvReac Type Severity Reaction Status Date / Time amoxicillin Allergy Rash Verified 12/04/20 05:42 ciprofloxacin AdvReac Nausea Verified 12/04/20 10:12 Anes History & Medical History - Anesthetic History Anesthesia Complications: reports: No previous complications, Emergence delirium (PT STATES HE WAKES UP "COMBATIVE") Family history of Anesthesia Complications: Denies Family history of Malignant Hyperthermia: Denies - Medical History Cardiovascular: reports: None Pulmonary: reports: Sleep apnea, CPAP use Gastrointestinal: reports: None Urinary: reports: None Musculoskeletal: reports: Osteoarthritis Endocrine/Autoimmune: reports: None Skin: reports: None Smoking Status: Never smoker - Surgical History Orthopedic: reports: Arthroscopic surgery, Other Exam General: Alert, Oriented x3, Cooperative Dental: WNL Mouth Openin Fingerbreadth Neck Mobility: Normal Mallampati classification: II Thyromental Distance: 4-6 cm Respiratory: Lungs clear Cardiovascular: Regular rate Plan Anesthesia Type: Total IV Consent for Procedure(s) Verified and Reviewed: Yes Code Status: Attempt Resuscitation ASA classification: 2-Mild systemic disease Is this case an emergency?: No
[2021-01-12] MEDS ORDERED: MIDAZOLAM 2 MG/2 ML VIAL ONE (09:28)
[2021-01-12] MEDS ORDERED: LIDOCAINE-MPF 2% 5 ML VIAL ONE (09:28)
[2021-01-12] MEDS ORDERED: PROPOFOL 1000 MG/100 ML 1,000 MG/100 ML BOTTLE IV ONE (09:28)
[2021-01-12 10:30] VITALS: BP 116/81
--- NOTE | 2021-01-12 12:17 | ANESTHESIA POST OP EVALUATION ---
Anesthesia Post Eval - Post Anesthesia Eval Vitals: Last Vital Signs Temp 36.4 C L 01/12/21 10:18 Pulse 95 01/12/21 10:29 Resp 22 01/12/21 10:29 BP 116/81 H 01/12/21 10:29 Pulse Ox 98 01/12/21 10:29 CV Function Including HR & BP: Stable Pain Control: Satisfactory Nausea & Vomiting: Negative Mental Status: Baseline Respiratory Status: Airway Patent Hydration Status: Satisfactory Anesthesia Complications: None
== END 2021-01-12 07:54 | disposition home or self-care (01) ==
LOC: SDS 07:53
PROVIDERS: ATTEND Surgery
PROC: 0DBE8ZX Excision of Large Intestine, Via Natural or Artificial Opening Endoscopic, Diagnostic (ICD-10-PCS; 2021-01-12)
PROC: 0DBB8ZX Excision of Ileum, Via Natural or Artificial Opening Endoscopic, Diagnostic (ICD-10-PCS; 2021-01-12)
PROC: 0DBH8ZX Excision of Cecum, Via Natural or Artificial Opening Endoscopic, Diagnostic (ICD-10-PCS; principal; 2021-01-12 08:45)
DX: K60.3 Anal fistula (principal); K52.89 Other specified noninfective gastroenteritis and colitis; K62.89 Other specified diseases of anus and rectum; K64.8 Other hemorrhoids; G47.30 Sleep apnea, unspecified; F41.0 Panic disorder [episodic paroxysmal anxiety]; E66.9 Obesity, unspecified; Z68.37 Body mass index [BMI] 37.0-37.9, adult; Z87.891 Personal history of nicotine dependence
CPT/HCPCS: 45380; 88305; J7120

== ENCOUNTER 2021-01-15 08:35 | Day surgery (SDC) | payer OTHER ==
[~2021-01-15 08:35] MED LIST changes: +CIPROFLOXACIN 400 MG/200 ML 400 MG/200 ML BAG IV ONE; -ROPIVACAINE 0.5% PF 20 ML AMPULE ONE; +metroNIDAZOLE 500 MG/100 ML 500 MG/100 ML BAG ONE
[2021-01-15] MEDS ORDERED: LACTATED RINGERS 1,000 ML IV ONE ×3 (08:40→14:19)
--- NOTE | 2021-01-15 09:40 | ANESTHESIA ---
Pre-Anesthesia VS, & Labs - Diagnosis anal fistula - Procedure EUA Endo Rectal advancement Flap Vital Signs: Temp Pulse Resp BP Pulse Ox 36.0 C L 88 16 150/102 H 96 01/15/21 08:43 01/15/21 08:43 01/15/21 08:43 01/15/21 08:43 01/15/21 08:43 Height: 5 ft 11 in Weight (kg): 125 kg Body Mass Index: 38.4 BMI Classification: Obese - NPO >8 hours Home Medications and Allergies Home Medications: Ambulatory Orders Dextroamphetamine/Amphetamine [Adderall 10 mg Tablet] 10 mg PO QPM PRN 01/08/21 Dextroamphetamine/Amphetamine [Adderall 30 mg Tablet] 30 mg PO DAILY 12/04/20 Dextroamphetamine/Amphetamine [Adderall 10 mg Tablet] 10 mg PO QPM PRN 01/08/21 Allergies/Adverse Reactions: Allergies Allergy/AdvReac Type Severity Reaction Status Date / Time amoxicillin Allergy Rash Verified 12/04/20 05:42 ciprofloxacin AdvReac Nausea Verified 12/04/20 10:12 Anes History & Medical History - Anesthetic History Anesthesia Complications: reports: Emergence delirium ("woke up violent") - Medical History Cardiovascular: reports: None Pulmonary: reports: Sleep apnea, CPAP use (uses every night) Gastrointestinal: reports: None Urinary: reports: None Neuro: reports: None Musculoskeletal: reports: Osteoarthritis Endocrine/Autoimmune: reports: None Blood Disorders: reports: None Skin: reports: None Smoking Status: Former smoker (quit 9 years ago) Psychosocial: reports: Depression, Anxiety, Alcohol (moderate alcohol consumption) History of Cancer?: No - Surgical History General: reports: Colonoscopy Orthopedic: reports: Arthroscopic surgery (left shoulder), Other Exam General: Alert, Oriented x3, Cooperative, No acute distress Dental: Other (front tooth chipped) Mouth Openin Fingerbreadth Neck Mobility: Normal Mallampati classification: III Thyromental Distance: 4-6 cm Respiratory: Lungs clear, Normal breath sounds, No respiratory distress, No accessory muscle use Cardiovascular: Regular rate, Normal S1, Normal S2, No murmurs Mental/Cognitive Status: Alert/Oriented X3, Normal for patient Plan Anesthesia Type: General Consent for Procedure(s) Verified and Reviewed: Yes Code Status: Attempt Resuscitation ASA classification: 2-Mild systemic disease Is this case an emergency?: No
[2021-01-15] MEDS ORDERED: MIDAZOLAM 2 MG/2 ML VIAL ONE (10:50)
[2021-01-15] MEDS ORDERED: PROPOFOL 200 MG/20 ML VIAL IVP ONE ×2 (10:51→12:39)
[2021-01-15] MEDS ORDERED: ROCURONIUM 50 MG/5 ML VIAL ONE (10:51)
[2021-01-15] MEDS ORDERED: fentaNYL 100 MCG/2 ML VIAL ONE ×2 (10:51→13:30)
[2021-01-15] MEDS ORDERED: LIDOCAINE-MPF 2% 5 ML VIAL ONE (10:51)
[2021-01-15] MEDS ORDERED: BUPIVACAINE 0.5% PF 30 ML VIAL ONE (11:37)
[2021-01-15] MEDS ORDERED: ONDANSETRON 4 MG/2 ML VIAL IVP PRN ×2 (12:07→14:41)
[2021-01-15] MEDS ORDERED: NALOXONE 0.4 MG/ML VIAL IVP PRN (12:07)
[2021-01-15] MEDS ORDERED: ATROPINE ABBOJECT 1 MG/10 ML SYRINGE IVP PRN (12:07)
[2021-01-15] MEDS ORDERED: MORPHINE 2 MG/ML CARPUJECT IVP PRN (12:07)
[2021-01-15] MEDS ORDERED: fentaNYL 100 MCG/2 ML VIAL IVP PRN (12:07)
[2021-01-15] MEDS ORDERED: HYDROmorphone 0.5 MG/0.5 ML SYRINGE IVP PRN ×2 (12:07→14:45)
[2021-01-15] MEDS ORDERED: DEXAMETHASONE 4 MG/ML VIAL ONE (12:33)
[2021-01-15] MEDS ORDERED: BUPIVACAINE 0.25% PF 30 ML VIAL SUBQ ONE (12:45)
[2021-01-15] MEDS ORDERED: HYDROmorphone 1 MG/ML CARPUJECT ONE (12:51)
[2021-01-15] MEDS ORDERED: GLYCOPYRROLATE 1 MG/5 ML VIAL ONE (12:55)
[2021-01-15] MEDS ORDERED: NEOSTIGMINE 1 MG/1 ML 10 ML MDV ONE (12:55)
[2021-01-15] MEDS ORDERED: LACTATED RINGERS 1,000 ML IV SCH (13:00)
[2021-01-15] MEDS ORDERED: ALBUTEROL 8 GM INHALER INH ONE (13:30)
[2021-01-15] MEDS ORDERED: KETOROLAC 30 MG/ML VIAL ONE (13:37)
[2021-01-15] MEDS ORDERED: oxyCODONE 5 MG TABLET PO PRN (14:41)
--- NOTE | 2021-01-15 14:42 | ANESTHESIA POST OP EVALUATION ---
Anesthesia Post Eval - Post Anesthesia Eval Vitals: Last Vital Signs Temp 36.3 C L 01/15/21 14:30 Pulse 98 01/15/21 14:30 Resp 14 01/15/21 14:30 BP 157/106 H 01/15/21 14:30 Pulse Ox 95 01/15/21 14:30 CV Function Including HR & BP: Stable Pain Control: Satisfactory Nausea & Vomiting: Negative Mental Status: Baseline Respiratory Status: Airway Patent Hydration Status: Satisfactory Anesthesia Complications: None
--- NOTE | 2021-01-15 14:48 | OPERATIVE REPORT ---
Operative Report - General Procedure Date: 01/15/21 Planned Procedure: 1. Exam under anesthesia 2. Possible fistulotomy 3. Possible endorectal advancement flap 4. 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 Examined anesthesia 2. Fistulotomy with partial fistulectomy 3. Gabi island advancement flap anoplasty 4. Pudendal block 5. Debridement Post Op Diagnosis: Same - Procedure Note Primary Surgeon: Rosie Secondary Surgeon: Fahad Anesthesia Provider: Hitesh Anesthesia Technique: General ET tube, Local Pathology: 1. External opening fistula in anal 2. Internal opening fistula in anal Estimated Blood Loss (mL): 75 Drain/Tube Type: Other (Anal packing) Indications: See EMR Findings: See below Complications: NONE - Other Other Information/Narrative: Intraoperative anorectal exam: Inspection: External Hemorrhoids - [None] Fissure in ano - [None] Erythema (perianal) - [None] Other -known fistula in anal left posterior lateral Palpation: Fluctuance - [None] Palpable cord -left posterior lateral known transphincteric fistula Scar tissue -yes Induration -no Digital Rectal Exam: Rectal Tone - aprpropriate Fluctuance - [None] Sphincter - [None] Masses - [None] Anoscopy: Hemorrhoids - Grade [II] Bleeding - [None] Distal proctitis - [None] Other - [None] Anastamosis - [None] OPERATIVE REPORT: The patient was taken to the operating room, placed supine on the operating table and after informed consent was confirmed, bilateral lower extremity serial compression devices were placed and thereafter, the patient was induced for general anesthesia, after which the patient was placed in high lithotomy with candy-cane stirrups with all pressure points offloaded and padded. Perioperative antibiotics dosed within an hour of incision. After this was completed, the patient was called for a timeout, which was agreed to by all in the room and an intraoperative endoscopy was performed. Please see the above for details. Please note the patient had already undergone endoscopic evaluation with random biopsies following his presentation with perianal sepsis. There was some mild colitis however nothing significant within the terminal ileum. Thus there was no need for interval optimization of medical management in anticipation of definitive repair for his transphincteric fistula. We will send him for gastrointestinal referral regardless. Because of the height of the internal opening this was not a candidate for endoanal/endorectal advancement flap and together with the indication for anal plasty gabi island advancement flap was the optimal choice. At this time, a Roni-Allred retractor was used to perform circumferential exam with findings as listed above. With the Seton in place, 0.5% Marcaine plus epinephrine was locally instilled for perioperative analgesia and block and at this time with both ends of the Seton clamped the tract was debrided with diluted hydrogen peroxide using an Angiocath. With this completed, the Seton was thereafter divided and 1 end was sutured to a Nu Gauze plain packing strip that had been presoaked in diluted hydrogen peroxide as well. This was thereafter tracked through the fistula tract and aggressively used to debride the entire fistula of its epithelial lining towards assuring adequate and complete closure. With the tract debrided and the internal opening still noted with the Nu Gauze in place, we performed a partial fistulectomy at the level of the internal opening as part of a planned gabi island advancement flap anoplasty outside- in towards coverage of the internal opening to address this transsphincteric [id number], which was not a candidate for traditional fistulotomy given the involvement of both internal and external sphincteric muscles. With the internal opening excised and sent for permanent pathology, we similarly did the same for the external opening, which was also sent for permanent pathology as well. Threading a fistula probe through the tract using the Nu Gauze, several interr upted sutures of 2-0 Vicryl in a [id number] fashion were used to obliterate the internal opening after the fistula probe was thereafter removed. This was again tested for obliteration by re-instilling diluted hydrogen peroxide through the tract with no extravasation noted at internal opening. With this completed and the internal opening debrided from associated tissue with an appropriate bed to accept the gabi flap anoplasty, we proceeded to perform the advancement flap towards addressing the internal opening. A gabi of skin was marked in the perianal skin approximately 3 cm poin t-to-point and this was incised sharply using a scalpel and deepened through the subcutaneous tissue with sharp dissection as well. Once this was completed, 2-0 Vicryl was used to secure the apex of the flap into the proximal apex of the anal canal at the level of the internal opening. This provided adequate coverage without any tension. Once this was completed, the 2 lateral apices were also secured using 2-0 Vicryl, again to appropriately advance the flap to cover the internal opening as well as the associated defect status post partial fistulectomy. Once this was completed, we proceeded to tie these stitches and thereafter further release the associated subcutaneous fat from the advancement flap to assure there was no tension on this tissue transfer while maintaining the blood supply, which was evident as flap was viable throughout the entirety of this operative intervention. With the island flap in place plainly viable without any tension noted on this tissue transfer, additional interrupteds of 2-0 Vicryl were used to close the facets along each of the proximal borders of the gabi. Once this was done with good approximation of tissue, we proceeded to close the distal facets just below the lateral apices with 2-0 Vicryl and then addressed radial donor site defect with 2-0 Vicryl to re-approximate the perianal skin. The wound at this time was hemostatic. Having completed this gabi island advancement flap anoplasty, we performed a circumferential exam, noting that flap was without any tension, was viable and was in place covering entirety of this partial fistulectomy site at the level of the internal opening. With this completed, hemostasis achieved and no other pathology noted, the external opening again had already been widened and was checked for hemostasis, which was also achieved. With this accomplished, we instilled the remainder of local as part of pudendal and local block circumferentially for lise and postoperative analgesia in the perianal skin and along the island flap donor site without any complication. Once this was achieved, final circumferential exam was performed with hemostasis confirmed. Packing was performed with Gelfoam wrapped with Surgicel in the manner of a tampon and tied with Vicryl. With all counts correct for both sponges, needles, and instruments, the patient was dressed with dry sterile gauze and mesh panties. The patient tolerated the procedure well for which there was no complication and was taken to the postanesthesia care unit in stable condition. Please note postoperative plan is as follows: POST ANORECTAL SURGICAL INSTRUCTIONS: PLAN: 1. Resume anticoagulation, if any, as per specific instructions. Call for any bleeding before resuming anticoagulation. 2. The patient to call for fevers, significant bleeding, severe pain or urinary retention. 3. The patient was advised to remove anal packing on the a.m. of postoperative day #1. 4. The patient to continue with warm tub soaks twice daily unless fistula plug is placed, in which case no submersive baths. 5. The patient to proceed with a high-fiber diet as recommended with mechanical fiber supplementation. 6. The patient to proceed with a bowel regimen including Colace, given narcotics for postoperative pain, and MiraLAX for salvage if fails to have bowel movement within 2 days of operative intervention. If no bowel movement within 3 days, patient to call service/office. 7. The patient to follow up with me in 10 days post procedure. 8. The patient to continue with antibiotics as instructed if prescribed. 9. No driving while taking narcotics, and avoid exertional activity in the immediate post-operative period. Please note I was present for the entirety of this operative intervention. Please note that all counts of sponges needles instruments correct the conclusion of this operative case. There were no complications. Please note that voice recognition software was used to transcribe this note and inadvertent errors might persist in spite of review and editing. I am obliged to you for your attention. I am thankful to you for allowing me to participate with you in this care of this patient.
[2021-01-15] MEDS ORDERED: TAMSULOSIN 0.4 MG CAPSULE PO ONE (17:00)
[2021-01-15] MEDS: methocarbamoL 500 MG TABLET PO SCH (17:52)
[2021-01-15] MEDS: KETOROLAC 15 MG/ML VIAL IVP SCH (17:53)
[2021-01-16] MEDS: methocarbamoL 500 MG TABLET PO SCH ×3 (00:28→11:26)
[2021-01-16] MEDS: KETOROLAC 15 MG/ML VIAL IVP SCH ×3 (00:29→11:26)
[2021-01-16 11:19] VITALS: BP 133/74
--- NOTE | 2021-01-16 12:22 | Discharge Plan ---
Discharge Plan Problem Reviewed?: Yes Disposition: Home, Self Care Condition: Good Prescriptions: oxyCODONE [Roxicodone] 5 mg PO Q4HR PRN #30 tablet PRN Reason: Pain methocarbamoL [Robaxin] 500 mg PO Q6HR PRN #50 tablet PRN Reason: Spasms metroNIDAZOLE [Flagyl] 250 mg PO Q8H #42 tablet Tamsulosin HCl [Flomax] 0.4 mg PO DAILY #30 cap Diet: Soft Activity Restrictions: Additional Comments Shower Restrictions: No Driving Restrictions: Yes (no driving while taking narcotis) Weight Bearing: Full Weight Plan of Treatment: POST ANORECTAL SURGICAL INSTRUCTIONS: PLAN: 1. Resume anticoagulation, if any, as per specific instructions. Call for any bleeding before resuming anticoagulation. 2. The patient to call for fevers, significant bleeding, severe pain or urinary retention. 3. The patient was advised to remove anal packing on the a.m. of postoperative day #1. 4. The patient to continue with warm tub soaks twice daily unless fistula plug is placed, in which case no submersive baths. 5. The patient to proceed with a high-fiber diet as recommended with mechanical fiber supplementation. 6. The patient to proceed with a bowel regimen including Colace, given narcotics for postoperative pain, and MiraLAX for salvage if fails to have bowel movement within 2 days of operative intervention. If no bowel movement within 3 days, patient to call service/office. 7. The patient to follow up with me in 10 days post procedure. 8. The patient to continue with antibiotics as instructed if prescribed. 9. Patient was advised that if instilled with Exparel (Liposomal Bupivicaine) no lidocaine for 96 hours, and arm band to be left in place as indicative of this. 10. No driving while taking narcotics, and avoid exertional activity in the immediate post-operative period. Impression/Plan 1. Oxycodone every 4-6 hours as needed for pain 2. Take Colace twice daily and MiraLAX daily as per above while taking narcotics and if no bowel function 3. Avoid nonsteroidals and continue with acetaminophen 650 mg every 6 hours not to exceed 4 g daily 4. Patient to also follow-up in surgery clinic for staple removal. 5. Patient to call or return to the hospital through ER for fevers, nausea, vomiting, abdominal pain or any other worrisome symptoms or concerns. 6. Patient not to return to any work capacity until seen in clinic. No Smoking: If you smoke, Please STOP! Call for help. Follow-up with: Mike Velez MD [Provider Admit Priv/Credential] - 1 Week
== END 2021-01-16 13:00 | disposition home or self-care (01) ==
LOC: SDS 08:35 → MS2 14:39 → SDS 01-16 13:00
PROVIDERS: ATTEND Surgery
PROC: 0JX Subcutaneous Tissue and Fascia, Transfer (ICD-10-PCS; 2021-01-15)
PROC: 0DBQ7ZZ Excision of Anus, Via Natural or Artificial Opening (ICD-10-PCS; principal; 2021-01-15 09:45)
DX: K60.3 Anal fistula (principal); G47.30 Sleep apnea, unspecified; E66.9 Obesity, unspecified; Z68.38 Body mass index [BMI] 38.0-38.9, adult; Z87.891 Personal history of nicotine dependence
CPT/HCPCS: 46288; A9270; J1170; J7120

== ENCOUNTER 2021-06-14 14:04 | Outpatient (CLI) | payer OTHER | END 2021-06-14 14:05 | disposition home or self-care (01) | LOC: DI 14:04 | DX: M47.892 Other spondylosis, cervical region (principal) ==

== ENCOUNTER 2021-06-14 14:20 | Outpatient (CLI) | payer OTHER ==
--- NOTE | 2021-06-14 16:59 | MRI Report ---
PROCEDURE: Knee RT W/O INDICATIONS: PAIN IN RIGHT KNEE TECHNIQUE: Noncontrast sagittal PD fast spin echo and T2 fast spin echo with fat saturation, sagittal 3-D gradie nt sequence with fat saturation; coronal T1 spin echo and PD fast spin echo with fat saturation, and axial PD fast spin echo with fat saturation through the knee. COMPARISON: None. FINDINGS: Image quality: Excellent. Menisci: The medial and lateral menisci demonstrate normal morphology and internal signal. The meni scal root ligaments appear intact. Cruciate ligaments: The anterior and posterior cruciate ligaments appear intact. Medial structures: Low-grade MCL sprain is seen. The posterior oblique ligament, semimembranosus tend on insertions, and oblique popliteal ligament, and meniscocapsular junction appear intact. Visualize d portions of the pes anserinus tendons appear normal. No abnormal bursal fluid. Lateral structures: Low-grade proximal LCL sprain is also seen. The long and short heads of the bicep s femoris tendon appear intact. The popliteus tendon appears normal; the popliteofibular ligament ap pears intact. The posterosuperior and anteroinferior popliteomeniscal fascicles appear intact. The arcuate and fabellofibular ligaments appear intact, around the lateral inferior geniculate artery. I liotibial band appears normal. Anterior structures: Distal quadriceps tendinosis at its superior patella insertion is seen. Patellar tendon is intact. Patellar alignment is normal. No femoral trochlear dysplasia or ventral trochlear prominence. No edema in the infrapatellar fat pad. Bones and cartilage: Marrow edema is seen involving upper portion of posterior patella without discre te fracture line. No other area of abnormal marrow signal. 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 Low to moderate grade chondromalacia involving apex and medial f acet of patella cartilage is also noted. joint space: There is small joint effusion. No Grajeda's cyst. Normal appearing synovial plicae are incidentally noted. IMPRESSION: 1. No evidence of focal meniscal tear. 2. Cruciate ligaments are intact. 3. Suggestion of bony contusion versus osteochondral injury involving upper portion of posterior german lla near apex with low to moderate grade chondromalacia patella involving apex and medial facet of pa tella cartilage. No fracture or dislocation. Low-grade chondromalacia also seen in medial femoral tib ial compartment. 4. Distal quadriceps tendinosis at its superior patella insertion. Low-grade proximal MCL and LCL spr ain. Reviewed by: Edinson Sanches MD on 06/14/2021 4:58 PM PST Approved by: Edinson Sanches MD on 06/14/2021 4:58 PM PST Station ID: [id number]
== END 2021-06-14 14:21 | disposition home or self-care (01) ==
LOC: DI 14:20
PROVIDERS: ATTEND Family Medicine
DX: R93.6 Abnormal findings on diagnostic imaging of limbs (principal); M67.863 Other specified disorders of tendon, right knee; S83.421A Sprain of lateral collateral ligament of right knee, initial encounter; S83.411A Sprain of medial collateral ligament of right knee, initial encounter

== ENCOUNTER 2022-09-26 13:59 | Outpatient (CLI) | payer OTHER ==
[2022-09-26 21:19] VITALS: BP 92/76
--- NOTE | 2022-09-26 21:19 | SLEEP CARE CONSULTATION ---
Information from patient questionnaire entered by Radha Wallace LPN. I have reviewed and concur with the information entered by Radha Wallace LPN. This document represents the service I personally performed and the decisions made by me, Yonatan Barrera MD, [facility] [place]. History of Present Illness Service Date and Time: 09/26/2022 1359 Reason for Visit: New patient Chief Complaint: reports: Unrefreshed sleep, Other (NEED MACHINE ADJUSTMENT) Date of Onset: UNKOWN Usual bedtime: MIDNIGHT Time it takes to fall asleep: A FEW MINS AFTER THE MACHINE HITS 9.5 Snores at night: Yes (WITHOUT MACHINE) Observed to quit breathing while asleep: Yes (SAME ABOVE) Sleeps alone due to snoring: No Number of times waking at night: UNKNOWN Reasons for waking at night: reports: Choking, Gasping for air Toss, Turn, or Twitch while sleeping: Yes Recalls having dreams: Yes (SOMETIMES) Usually gets out of bed at: 0730 Feels refreshed in the morning: Yes (SOMETIMES) Morning headache: Yes (SOMETIMES) Sleepy or fatigued during the day: Yes (SOMETIMES) Ever fallen asleep while driving: No (NOT SINCE STARTING THE MACHINE) Takes day naps: No Prior sleep studies: Yes (2019 HERE) Year and Where: 2018 [facility] Additional HPI information: I had the pleasure of seeing Mr. Julian today regarding mild obstructive sleep apnea-hypopnea. As you know, he is a 37-year-old gentleman who had an in- laboratory polysomnography here in 2019 showing mild obstructive sleep apnea- hypopnea with an AHI of 5.6 and silver oxygen saturation of 83%. The respiratory events occurred almost exclusively during REM sleep. He was prescribed an autoCPAP set at 8 12 cmH2O. He has been using the device sporadically. The compliance report shows usage in 43 out of the past 180 night. He says that the pressure feels too low. He wears a [employer]ics DreamWear nasal cushion mask. The residual AHI is 4.3. Average air leak is 7 L/minute. [email or web address] is his durable medical supplier. - Parasomnia Symptoms Ever been unable to move upon waking from sleep: Yes Walks in sleep: No Talks in sleep: No Ever felt weak in the knees when startled or emotional: No Bothered by creepy, crawly, restless sensations in legs: No Problems with memory or concentration: Yes CPAP Compliance Data - Data Reviewed with Patient Average duration of nightly device use: 4HRS 22MINS Compliance rate %: 23.9 Current pressure setting (cmH2O): 8-12 Average residual AHI: 4.3 Subjective Initial [place] Sleepiness Scale score: 19 Social History The patient's occupation is a [employer]. Patient is and lives in [place]. Have you smoked in the past 12 months: Yes Cigarettes per day (20/pack): 11 Quit date: 2011 Alcohol use: Yes Alcohol amount and frequency: OCCASIONAL Caffeine use: Yes Caffeine amount and frequency: DAILY Allergies and Home Medications Drug allergies reviewed: Yes Home medication list reviewed: Yes Allergy and home medication list: Allergies amoxicillin Allergy (Verified 12/04/20 05:42) Rash ciprofloxacin Adverse Reaction (Verified 12/04/20 10:12) Nausea Review of Systems Cardiovascular: denies: high blood pressure, palpitations, chest pain, irregular heart rate or pulse, leg or foot swelling, have to sleep sitting up, other Respiratory: denies: shortness of breath, wheeze, sputum production, chronic cough, other Gastrointestinal: denies: heartburn, difficulty swallowing, nausea, vomitting, diarrhea, abdominal pain, other Urinary: denies: incontinence, frequency, urgency, impotence, other Neurological: denies: headaches, seizure, head trauma, disorientation, speech dysfunction, gait or balance problems, fainting or unconsciousness, other Psychiatric: reports: Attention Deficit Hyperactivity, anxiety, depression, claustrophobia Ear/Nose/Throat: denies: nasal congestion, sinus problems, nose bleeds, dry mouth/throat, hoarseness, injury to nose, tonsillectomy, wisdom teeth removed, other Endocrine: denies: thyroid disease, history of goiter, sluggishness, too hot or cold, excessive thirst, increased appetite, increased urination, unexplained weakness, other Musculoskeletal: denies: joint pain, neck pain, back pain, joint swelling, muscle pain or cramping, mobility problems, other Immunologic: denies: sneezing, rash, itching, allergies to food or environment, other Physical Exam Vital signs obtained and entered by: RADHA Griffith LPN Blood Pressure: 92/76 Cuff size: wrist Heart Rate: 107 O2 Saturation: 97 Height: 5 ft 11 in Weight: 280 lb 9.6 oz Body Mass Index: 39.1 BMI Classification: Obese Mood/affect: normal HEENT: No craniofacial malformation Nostrils: patent to airflow Turbinates: normal Septum: midline Mouth and throat: narrow oropharynx Soft palate: long Hard palate: normal Uvula: normal Uvula visualization: 50% Mallampati Class II Tongue: normal in size Tonsils: small Chin and jaw: normal size and position Neck: normal w/o lymphadenopathy or thyromegaly Heart: regular rate and rhythm Lungs: clear bilaterally Extremities: no edema or clubbing Neurologic: intact Impression and Plan IMPRESSION: 1. Obstructive Sleep Apnea-Hypopnea Syndrome, mild, as previously d iagnosed. Narrow oropharynx and obesity are common predisposing factors for obstructive sleep apnea-hypopnea syndrome. The patient has [id number] compliance, but he reports noticeable impro vements when he uses the CPAP. For his comfort, I will raise the pressure range to 10 15 cmH2O. Plan: 1. AutoCPAP set to 10 -15 cmH2O via the modem. 2. Try to lose weight. 3. Return for follow up in a year or earlier if there is any problem. Continue with device pressure at (cmH2O): 10 - 15 Counseling Topics: Weight control Follow up with Sleep Care in: 1 year Time Spent with Patient (minutes): 15
== END 2022-09-26 14:00 | disposition home or self-care (01) ==
LOC: SC 13:59
PROVIDERS: ATTEND Internal Medicine Pulmonary Disease
DX: G47.33 Obstructive sleep apnea (adult) (pediatric) (principal); E66.9 Obesity, unspecified; Z68.39 Body mass index [BMI] 39.0-39.9, adult; Z87.891 Personal history of nicotine dependence
CPT/HCPCS: 99202; 99212